=== PATIENT | female | born 1950 | race Caucasian/White ===

== ENCOUNTER 2016-11-23 05:06 | Emergency (ER) | payer MEDICARE, BC ==
[~2016-11-23] VITALS: Ht 162.6 cm; Wt 54.4 kg
[~2016-11-23 05:06] MED LIST: CARB-93 PO; GALA16CA PO; MEMA28CA PO; SERT100T12 PO
[2016-11-23 05:27] LABS: BASOPHILS % (AUTO) 0.5 % (0.0-2.0); DIFF TOTAL % 100 %; EOSINOPHILS # (AUTO) 0.1 /CMM (0.0-0.7); EOSINOPHILS % (AUTO) 1.2 % (0.0-6.0); HEMATOCRIT 39 % (33-45); HEMOGLOBIN 12.9 g/dL (11.5-14.8); LYMPHOCYTES # (AUTO) 3.5 /CMM (0.8-4.8); LYMPHOCYTES % (AUTO) 43.4 % (20.0-44.0); MEAN CORPUSCULAR HEMOGLOBIN 32 PG (26.0-33.0); MEAN CORPUSCULAR HGB CONC 33 g/dl (31.0-36.0); MEAN CORPUSCULAR VOLUME 98 fL (82-100); MONOCYTES # (AUTO) 0.6 /CMM (0.1-1.30); MONOCYTES % (AUTO) 7.8 % (2.0-12.0); NEUTROPHILS # (AUTO) 3.8 /CMM (1.8-8.9); NEUTROPHILS % (AUTO) 47.1 % (43.0-81.0); PLATELET COUNT (AUTO) 276 /CMM (150-450); RED BLOOD CELL COUNT(AUTO) 4.01 MIL/uL (4.0-5.2); WHITE BLOOD COUNT (AUTO) 8.1 K/uL (4.3-11.0)
[2016-11-23] MEDS ORDERED: LORAZEPAM INJ 2 MG/ML VIAL IVP ONE (05:30)
[2016-11-23 05:36] LABS: CALCIUM, SERUM 8.9 mg/dL (8.5-10.1); CREATININE 0.7 mg/dL (0.6-1.3); POTASSIUM 4.2 mmol/L (3.5-5.1)
[2016-11-23 05:52] LABS: INR 1.05 (0.87-1.13); PROTHROMBIN TIME 11.4 SECS (9.5-12.7)
[2016-11-23] MEDS ORDERED: LORAZEPAM INJ 2 MG/ML VIAL ONE (05:57)
[2016-11-23 06:46] VITALS: BP 118/59
== END 2016-11-23 06:47 | disposition home or self-care (01) ==
LOC: ER 05:11
DX: G40.909 Epilepsy, unspecified, not intractable, without status epilepticus (principal); F03.90 Unspecified dementia, unspecified severity, without behavioral disturbance, psychotic disturbance, mood disturbance, and anxiety; Z88.0 Allergy status to penicillin; G20 Parkinson's disease
CPT/HCPCS: 70450; 80048; 80164; 82962; 85025; 85610; 96374; 99285; A4606; J2060; Z7610

== ENCOUNTER 2017-03-03 07:00 | Emergency (ER) | payer MEDICARE, BC ==
[~2017-03-03] VITALS: Ht 162.6 cm; Wt 54.9 kg
--- NOTE | 2017-03-03 07:00 | NUR ---
66 yo female bb ra from home. pt is non verbal at this time, per ems pt called 911 for witnessed seizure; pt was in bed when episode occured. pt ds to er bed by ems, pt gowned, placed on interpreter translator. pt skin warm and dry, rr even and unlabored. 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 noted 18g left AC iv started by ems. awaiting orders from provider, will continue to monitor
--- NOTE | 2017-03-03 07:02 | NUR ---
YUE CRISOSTOMO MD at bed side for eval
--- NOTE | 2017-03-03 07:10 | NUR ---
Pt on bed, awake, vss. seizure precaution observed
--- NOTE | 2017-03-03 07:11 | NUR ---
critical power technician at for ekg
--- NOTE | 2017-03-03 07:24 | NUR ---
DIRECTOR HAIR AT BEDSIDE BLOOD SAMPLE COLLECTED SENT TO LAB
[2017-03-03 07:34] LABS: BASOPHILS % (AUTO) 0.4 % (0.0-2.0); EOSINOPHILS # (AUTO) 0.2 /CMM (0.0-0.7); EOSINOPHILS % (AUTO) 3.1 % (0.0-6.0); HEMATOCRIT 38 % (33-45); HEMOGLOBIN 12.8 g/dL (11.5-14.8); LYMPHOCYTES # (AUTO) 2.3 /CMM (0.8-4.8); LYMPHOCYTES % (AUTO) 36.5 % (20.0-44.0); MEAN CORPUSCULAR HEMOGLOBIN 32 PG (26.0-33.0); MEAN CORPUSCULAR HGB CONC 33 g/dl (31.0-36.0); MEAN CORPUSCULAR VOLUME 96 fL (82-100); MONOCYTES # (AUTO) 0.6 /CMM (0.1-1.30); MONOCYTES % (AUTO) 9.4 % (2.0-12.0); NEUTROPHILS # (AUTO) 3.2 /CMM (1.8-8.9); NEUTROPHILS % (AUTO) 50.6 % (43.0-81.0); PLATELET COUNT (AUTO) 241 /CMM (150-450); RDW COEFFICIENT OF VARIATION 14.1 (11.5-15.0); RED BLOOD CELL COUNT(AUTO) 3.98 MIL/uL (4.0-5.2); WHITE BLOOD COUNT (AUTO) 6.3 K/uL (4.3-11.0)
[2017-03-03 07:50] LABS: CALCIUM, SERUM 8.7 mg/dL (8.5-10.1); CREATININE 0.6 mg/dL (0.6-1.3); POTASSIUM 4.3 mmol/L (3.5-5.1)
--- NOTE | 2017-03-03 08:02 | NUR ---
DIRECTOR BIOINFORMATICS AT BEDSIDE
[2017-03-03] MEDS ORDERED: VALPROIC ACID 250 MG/5 ML UDC ONE (08:19)
--- NOTE | 2017-03-03 08:25 | NUR ---
yadiel called charito 60 min spoke to foreign [id number]
[2017-03-03] MEDS ORDERED: VALPROIC ACID 250 MG/5 ML UDC PO ONE (08:30)
[2017-03-03 08:50] VITALS: BP 121/61
== END 2017-03-03 08:51 | disposition home or self-care (01) ==
LOC: ER 07:01
DX: G40.909 Epilepsy, unspecified, not intractable, without status epilepticus (principal); G30.8 Other Alzheimer's disease; F02.80 Dementia in other diseases classified elsewhere, unspecified severity, without behavioral disturbance, psychotic disturbance, mood disturbance, and anxiety; G20 Parkinson's disease; Z88.0 Allergy status to penicillin
CPT/HCPCS: 36415; 71010; 80048; 80164; 85025; 93005; 99285; A4606; Z7610